=== PATIENT | female | born 1940 | race Caucasian/White ===

== ENCOUNTER 2017-01-08 14:09 | Emergency (ER) | payer MEDICARE ==
[~2017-01-08] VITALS: Ht 154.9 cm; Wt 62.0 kg
[~2017-01-08 14:09] MED LIST: CHLO25TA2 PO; ESTR42.5V PV; LEVO75TA3 PO; LISI-515 PO; OMEP20TA39 PO; TRAZ50TA4 PO; VENL-39 PO
[2017-01-08 14:15] VITALS: BP 159/96; PULSE 82; RESP 20; TEMP 97.9; O2SAT 95
[2017-01-08] MEDS ORDERED: TRAZ50TA12 PO (15:53)
[2017-01-08] MEDS ORDERED: VENL75TA PO (15:53)
[2017-01-08] MEDS ORDERED: LEVO75TA3 PO (15:53)
[2017-01-08 16:50] VITALS: BP 147/82; PULSE 72; RESP 18; O2SAT 97
--- NOTE | 2017-01-08 16:53 | PD ---
HPI Chief Complaint: Hypertension Time Seen by Provider: 16:37 Travel History International Travel<30 days: No Contact w/Intl Traveler<30days: No Traveled to known affect area: No History of Present Illness HPI This 76-year-old female says she has not been feeling well for several weeks. She's been having intermittent headache. When she checks her blood pressure tends to be elevated. She has a history of hypertension and is currently on lisinopril 20 mg a day and chlorthalidone. She is also on Effexor and trazodone. He was started on the trazodone for neuropathy. The headache she has is at the apex of the head. There is no numbness tingling or weakness. There is been no fever or chills. There is been no chest pain she has no history of heart disease or stroke. PFSH Past Medical History Arthritis: Yes Depression: Yes Cardiovascular Problems: Yes High Cholesterol: Yes GERD: Yes Hypertension: Yes Thyroid Disease: Yes Ulcer: Yes Influenza Vaccination: Yes ?: Not Menopausal: Yes Past Surgical History Cholecystectomy: Yes Endocrine Surgery: Yes (thyroidectomy) Joint Replacement: Yes (right shoulder) Thoracic Surgery: Yes (L 4-5) Social History Alcohol Use: Yes (1 glass daily) Tobacco Use: No Substance Use: No Allergies-Medications (Allergen,Severity, Reaction): Coded Allergies: No Known Allergies (Verified , 01/08/17) Reported Meds & Prescriptions Reported Meds & Active Scripts Active Chlorthalidone 25 Mg Tab 25 Mg PO DAILY Lisinopril 20 Mg Tab 20 Mg PO DAILY Reported Effexor (Venlafaxine HCl) 75 Mg Tab 75 Mg PO DAILY Trazodone (Trazodone HCl) 50 Mg Tab 50 Mg PO HS Levothyroxine (Levothyroxine Sodium) 75 Mcg Tab 75 Mcg PO DAILY Review of Systems General / Constitutional: No: Fever, Chills Eyes: No: Diploplia HENT: Positive: Headaches Cardiovascular: No: Chest Pain or Discomfort, Palpitations Respiratory: No: Cough, Shortness of Breath Gastrointestinal: No: Nausea, Vomiting Genitourinary: No: Nocturia Musculoskeletal: Positive: Myalgias Neurologic: No: Syncope Psychiatric: No: Anxiety Hematologic/Lymphatic: No: Easy Bruising Physical Exam Narrative GENERAL: Well-developed female SKIN: Warm and dry. HEAD: Atraumatic. Normocephalic. EYES: Pupils equal and round. No scleral icterus. No injection or drainage. ENT: No nasal bleeding or discharge. Mucous membranes pink and moist. NECK: Trachea midline. No JVD. CARDIOVASCULAR: Regular rate and rhythm. No murmur appreciated. RESPIRATORY: No accessory muscle use. Clear to auscultation. Breath sounds equal bilaterally. GASTROINTESTINAL: Abdomen soft, non-tender, nondistended. Hepatic and splenic margins not palpable. MUSCULOSKELETAL: No obvious deformities. No clubbing. No cyanosis. No edema. NEUROLOGICAL: Awake and alert. No obvious cranial nerve deficits. Motor grossly within normal limits. Normal speech. PSYCHIATRIC: Appropriate mood and affect; insight and judgment normal. Data Data Last Documented VS Vital Signs Date Time Temp Pulse Resp B/P Pulse Ox O2 Delivery O2 Flow Rate FiO2 01/08/17 16:50 72 18 147/82 97 Room Air 01/08/17 14:15 97.9 Orders Complete Blood Count With Diff (01/08/17 16:49) Basic Metabolic Panel (Bmp) (01/08/17 16:49) Potassium Chloride (Kcl) (01/08/17 18:00) Labs Laboratory Tests Test 01/08/17 17:10 White Blood Count 6.7 TH/MM3 Red Blood Count 5.40 MIL/MM3 Hemoglobin 15.2 GM/DL Hematocrit 46.1 % Mean Corpuscular Volume 85.4 FL Mean Corpuscular Hemoglobin 28.1 PG Mean Corpuscular Hemoglobin 32.9 % Concent Red Cell Distribution Width 12.6 % Platelet Count 332 TH/MM3 Mean Platelet Volume 7.2 FL Neutrophils (%) (Auto) 60.4 % Lymphocytes (%) (Auto) 29.1 % Monocytes (%) (Auto) 8.6 % Eosinophils (%) (Auto) 1.1 % Basophils (%) (Auto) 0.8 % Neutrophils # (Auto) 4.0 TH/MM3 Lymphocytes # (Auto) 1.9 TH/MM3 Monocytes # (Auto) 0.6 TH/MM3 Eosinophils # (Auto) 0.1 TH/MM3 Basophils # (Auto) 0.1 TH/MM3 CBC Comment DIFF FINAL Differential Comment Sodium Level 137 MEQ/L Potassium Level 3.0 MEQ/L Chloride Level 97 MEQ/L Carbon Dioxide Level 31.4 MEQ/L Anion Gap 9 MEQ/L Blood Urea Nitrogen 19 MG/DL Creatinine 1.00 MG/DL Estimat Glomerular Filtration 54 ML/MIN Rate Random Glucose 98 MG/DL Calcium Level 8.9 MG/DL MDM Medical Decision Making Medical Screen Exam Complete: Yes Emergency Medical Condition: Yes Medical Record Reviewed: Yes Differential Diagnosis Differential includes inadequate blood pressure medicine, essential hypertension , electrolyte imbalance Narrative Course Potassium is quite low at 3.0. This could explain why her blood pressure medicine has not working well. I will give her potassium now and start her on 20 mEq daily. He is to follow-up with her own medical doctor Diagnosis Primary Impression: Hypokalemia Scripts Potassium Chloride ER 20 Meq Tab20 Meq PO DAILY #30 TAB Ref 0 Prov:Aníbal Charles MD 01/08/17 Disposition: 01 DISCHARGE HOME Condition: Stable Aníbal Charles MD Jan 08, 2017 16:53
[2017-01-08 17:21] LABS: BASOPHIL # 0.1 TH/MM3 (0-0.2); BASOPHIL % 0.8 % (0.0-2.0); EOSINOPHIL # 0.1 TH/MM3 (0-0.4); EOSINOPHIL % 1.1 % (0.0-4.0); HEMATOCRIT 46.1 % (35.0-46.0); HEMO FLAGS DIFF FINAL; LYMPH % 29.1 % (9.0-44.0); LYMPHOCYTE # 1.9 TH/MM3 (1.0-4.8); MEAN CELL VOLUME 85.4 FL (80.0-100.0); MEAN CORPUSCULAR HEMOGLOBIN 28.1 PG (27.0-34.0); MEAN CORPUSCULAR HGB CONC 32.9 % (32.0-36.0); MONO % 8.6 % (0.0-8.0); NEUT % 60.4 % (16.0-70.0); PLATELET COUNT 332 TH/MM3 (150-450); RED CELL DISTRIBUTION WIDTH 12.6 % (11.6-17.2); WHITE BLOOD COUNT 6.7 TH/MM3 (4.0-11.0)
[2017-01-08 17:33] LABS: BICARBONATE 31.4 MEQ/L (21.0-32.0)
[2017-01-08] MEDS ORDERED: POTASSIUM CHLORIDE 20 MEQ CONTROLLED RELEASE TAB PO ONE (18:00)
[2017-01-08] MEDS ORDERED: POTA-163 PO (18:16)
[2017-01-08 18:24] VITALS: BP 128/84; PULSE 76; RESP 18; O2SAT 97
[2017-01-15] MEDS ORDERED: AMLO10TA2 PO (10:50)
[2017-02-12] MEDS ORDERED: TRAZ50TA12 PO (16:00)
[2017-02-12] MEDS ORDERED: POTA-163 PO (16:00)
[2017-02-12] MEDS ORDERED: NAPR500 PO (16:00)
[2017-02-12] MEDS ORDERED: OMEP40CA2 PO (16:00)
[2017-02-12] MEDS ORDERED: MELO7.5T4 PO (16:00)
[2017-02-12] MEDS ORDERED: VENL50TA PO (16:00)
[2017-02-12] MEDS ORDERED: TRIA37.5 PO (16:00)
[2017-02-12] MEDS ORDERED: AMLO5TAB2 PO (16:00)
[2017-02-12] MEDS ORDERED: DEXA4INJ9 IM (16:06)
[2017-02-12] MEDS ORDERED: TRIA.1%T TOPICAL (16:06)
[2017-02-12] MEDS ORDERED: PRED20 PO (16:06)
[2017-04-16] MEDS ORDERED: TRAM50TA PO (10:53)
[2017-04-29] MEDS ORDERED: TRAZ50TA12 PO (13:28)
[2017-05-08] MEDS ORDERED: LEVO75TA3 PO (10:00)
[2017-05-08] MEDS ORDERED: AMLO5TAB2 PO (10:01)
== END 2017-01-08 18:30 | disposition home or self-care (01) ==
LOC: PHED 14:09 → PHEFT 18:30
DX: E87.6 Hypokalemia (principal); F32.9 Major depressive disorder, single episode, unspecified; E78.00 Pure hypercholesterolemia, unspecified; I10 Essential (primary) hypertension
CPT/HCPCS: 80048; 85025; 99284

== ENCOUNTER 2017-02-08 17:38 | Emergency (ER) | payer MEDICARE ==
[~2017-02-08] VITALS: Ht 152.4 cm; Wt 62.8 kg
[~2017-02-08 17:38] MED LIST changes: +AMLO10TA2 PO; -CHLO25TA2 PO; -ESTR42.5V PV; -OMEP20TA39 PO; +POTA-163 PO; +TRAZ50TA12 PO; -TRAZ50TA4 PO; -VENL-39 PO; +VENL75TA PO
[2017-02-08 17:56] VITALS: BP 122/78; PULSE 82; RESP 15; TEMP 98.5; O2SAT 96
[2017-02-08] MEDS ORDERED: BENA25TA3 PO (19:53)
[2017-02-08] MEDS ORDERED: AMLO2.5T PO (19:53)
[2017-02-08] MEDS ORDERED: VENL50TA PO ×2 (19:53→19:59)
[2017-02-08] MEDS ORDERED: CHLO25TA2 PO (19:53)
[2017-02-08] MEDS ORDERED: POTA-163 PO (19:59)
--- NOTE | 2017-02-08 20:08 | PD ---
HPI Chief Complaint: Skin Problem Time Seen by Provider: 20:08 Travel History International Travel<30 days: No Contact w/Intl Traveler<30days: No Traveled to known affect area: No History of Present Illness HPI 76-year-old female presents to the ED for evaluation of a four-day history of rash. Patient states she first noticed it on her hands but that has since resolved. She states that she now has a rash in the bilateral axilla, under both breasts and in bilateral groin. She endorses mild pruritus. She also states that she occasionally feels as if she is having "tightness of the lungs and difficulties catching her breath. She states that the breathing difficulties resolve with dosing of Benadryl. Patient endorses initiation of 3 new medications in the past 2 weeks, amlodipine, potassium and chlorthalidone. She denies new soaps, toiletries, laundry detergents. PFSH Past Medical History Arthritis: Yes Depression: Yes Cardiovascular Problems: Yes High Cholesterol: Yes Diminished Hearing: No GERD: Yes Hypertension: Yes Immunizations Current: Yes (SHINGLES) Thyroid Disease: Yes Ulcer: Yes ?: Not Menopausal: Yes Past Surgical History Cholecystectomy: Yes Endocrine Surgery: Yes (thyroidectomy) Joint Replacement: Yes (right shoulder) Thoracic Surgery: Yes (L 4-5) Social History Alcohol Use: No Tobacco Use: No Substance Use: No Allergies-Medications (Allergen,Severity, Reaction): Coded Allergies: Lisinopril (Verified Allergy, Severe, HOARSE VOICE , 02/08/17) Reported Meds & Prescriptions Reported Meds & Active Scripts Active Reported Effexor (Venlafaxine HCl) 50 Mg Tab 50 Mg PO DAILY Potassium Chloride ER (Potassium Chloride) 20 Meq Tab 20 Meq PO DAILY Benadryl Allergy (Diphenhydramine HCl) 25 Mg Tab 25 Mg PO Q6H PRN Chlorthalidone 25 Mg Tab 25 Mg PO DAILY Amlodipine (Amlodipine Besylate) 2.5 Mg Tab 2.5 Mg PO DAILY Trazodone (Trazodone HCl) 50 Mg Tab 50 Mg PO HS Levothyroxine (Levothyroxine Sodium) 75 Mcg Tab 75 Mcg PO DAILY Review of Systems Except as stated in HPI: all other systems reviewed are Neg Physical Exam Narrative GENERAL: Well-nourished, well-developed white female appearing younger than her stated age. SKIN: Warm and dry. There is a mildly erythematous, blanching, lacy rash of bilateral axilla, bilateral groins and under bilateral breasts. No rash noted on the palms bilaterally. HEAD: Normocephalic. EYES: No scleral icterus. No injection or drainage. ENT: Pearly tenorio tympanic memories bilaterally. Oropharynx without erythema, edema or exudate. Uvula midline. Airway patent. Floor of mouth is soft. NECK: Supple, trachea midline. No JVD or lymphadenopathy. CARDIOVASCULAR: Regular rate and rhythm without murmurs, gallops, or rubs. RESPIRATORY: Breath sounds clear and equal bilaterally. No accessory muscle use. GASTROINTESTINAL: Abdomen soft, non-tender, nondistended. MUSCULOSKELETAL: No cyanosis, or edema. BACK: Nontender without obvious deformity. No CVA tenderness. Data Data Last Documented VS Vital Signs Date Time Temp Pulse Resp B/P Pulse Ox O2 Delivery O2 Flow Rate FiO2 02/08/17 17:56 98.5 82 15 122/78 96 MDM Medical Decision Making Medical Screen Exam Complete: Yes Emergency Medical Condition: Yes Differential Diagnosis Contact dermatitis versus heat rash versus intertriginous candidiasis versus drug eruption versus other Narrative Course 76-year-old female presents to the ED for evaluation of a four-day history of rash. Patient states she first noticed it on her hands but that has since resolved. She states that she now has a rash in the bilateral axilla, under both breasts and in bilateral groin. She endorses mild pruritus. She also states that she occasionally feels as if she is having "tightness of the lungs and difficulties catching her breath. She states that the breathing difficulties resolve with dosing of Benadryl. Patient endorses initiation of 3 new medications in the past 2 weeks, amlodipine, potassium and chlorthalidone. She denies new soaps, toiletries, laundry detergents. Vitals reviewed. Physical exam reveals a mildly erythematous, blanching, lacy rash of bilateral axilla, bilateral groins and under bilateral breasts. No rash noted on the palms bilaterally. ENT exam is unremarkable, chest is clear to auscultation bilaterally. This does not look like contact dermatitis or candidiasis. Could be a drug eruption but if so it's atypical. As a caution the patient was instructed to discontinue potassium and chlorthalidone. She is instructed to continue with [id number] administration of Benadryl, follow-up with her primary care provider tomorrow. We discussed reasons to return to the ED. She indicated understanding of the instructions. She is amenable to the plan of care. This patient is stable and discharged home. Diagnosis Primary Impression: Pruritic intertrigo Additional Impression: Rash and nonspecific skin eruption Referrals: Primary Care Physician Patient Instructions: General Instructions Additional Instructions: Stop taking potassium and chlorthalidone. Continue taking amlodipine. Continue taking Benadryl every 4-6 hours for the next 24 hours. Return to the emergency room immediately for worsening of breathing symptoms. Follow-up with your primary care provider tomorrow for reevaluation. Return to the ED for any urgent or emergent medical condition. Disposition: 01 DISCHARGE HOME Condition: Stable Ny Valladares Feb 08, 2017 20:08
[2017-02-12] MEDS ORDERED: OMEP40CA2 PO (16:00)
[2017-02-12] MEDS ORDERED: MELO7.5T4 PO (16:00)
[2017-02-12] MEDS ORDERED: TRIA37.5 PO (16:00)
[2017-02-12] MEDS ORDERED: NAPR500 PO (16:00)
[2017-02-12] MEDS ORDERED: AMLO5TAB2 PO (16:00)
[2017-02-12] MEDS ORDERED: TRAZ50TA12 PO (16:00)
[2017-02-12] MEDS ORDERED: POTA-163 PO (16:00)
[2017-02-12] MEDS ORDERED: VENL50TA PO (16:00)
[2017-02-12] MEDS ORDERED: DEXA4INJ9 IM (16:06)
[2017-02-12] MEDS ORDERED: TRIA.1%T TOPICAL (16:06)
[2017-02-12] MEDS ORDERED: PRED20 PO (16:06)
[2017-04-16] MEDS ORDERED: TRAM50TA PO (10:53)
[2017-04-29] MEDS ORDERED: TRAZ50TA12 PO (13:28)
[2017-05-08] MEDS ORDERED: LEVO75TA3 PO (10:00)
[2017-05-08] MEDS ORDERED: AMLO5TAB2 PO (10:01)
== END 2017-02-08 21:14 | disposition home or self-care (01) ==
LOC: PHED 17:38 → PHEFT 21:14
DX: L29.8 Other pruritus (principal); L30.4 Erythema intertrigo; I10 Essential (primary) hypertension; F32.9 Major depressive disorder, single episode, unspecified; E78.00 Pure hypercholesterolemia, unspecified
CPT/HCPCS: 99283

== ENCOUNTER 2017-07-03 15:13 | Emergency (ER) | payer MEDICARE ==
[~2017-07-03] VITALS: Ht 152.4 cm; Wt 63.8 kg
[~2017-07-03 15:13] MED LIST changes: -AMLO10TA2 PO; +AMLO5TAB2 PO; -LISI-515 PO; +MELO7.5T4 PO; +OMEP40CA2 PO; -POTA-163 PO; +PRED20 PO; +TRAM50TA PO; +TRIA.1%T TOPICAL; +TRIA37.5 PO; +VENL50TA PO; -VENL75TA PO
[2017-07-03 15:23] VITALS: BP 137/58; PULSE 89; RESP 18; TEMP 98; O2SAT 96
[2017-07-03] MEDS ORDERED: SILVER NITR/POTASSIUM NITRATE APPLICATORS TOPICAL ONE (16:00)
--- NOTE | 2017-07-03 16:48 | PD ---
HPI Chief Complaint: Nosebleed Time Seen by Provider: 15:33 Travel History International Travel<30 days: No Contact w/Intl Traveler<30days: No Traveled to known affect area: No History of Present Illness HPI Cyst 77-year-old woman who presents to the emergency department complaining of nosebleed. She been having nosebleeds almost daily for the past month or so. Previously She's not had any trouble with nosebleeds. She is not having any bleeding from her gums, easy bruising, or other evidence of bleeding diathesis. She is not really had sinus or nasal problems in the past. History Past Medical History Narrative Medical Hypertension Hypothyroidism Arthritis Influenza Vaccination: Yes Menopausal: Yes Social History Alcohol Use: No Tobacco Use: No Allergies-Medications (Allergen,Severity, Reaction): Coded Allergies: Lisinopril (Verified Allergy, Severe, HOARSE VOICE , 07/03/17) Reported Meds & Prescriptions Reported Meds & Active Scripts Active Omeprazole 40 Mg Cap 40 Mg PO DAILY Effexor (Venlafaxine HCl) 50 Mg Tab 50 Mg PO DAILY Amlodipine (Amlodipine Besylate) 5 Mg Tab 5 Mg PO DAILY Levothyroxine (Levothyroxine Sodium) 75 Mcg Tab 75 Mcg PO DAILY Trazodone (Trazodone HCl) 50 Mg Tab 50 Mg PO HS Tramadol (Tramadol HCl) 50 Mg Tab 50 Mg PO Q8H PRN Prednisone 20 Mg Tab 40 Mg PO DAILY Take 40 mg (2 tablets) daily for 5 days Triamcinolone Topical (Triamcinolone Acetonide) 0.1% Cream 1 Applic TOPICAL ONCE Meloxicam 7.5 Mg Tab 7.5 Mg PO DAILY Triamterene-Hydrochlorothiazide 37.5-25 Mg Tab 1 Tab PO DAILY Review of Systems Except as stated in HPI: all other systems reviewed are Neg Physical Exam Narrative GENERAL: Well-appearing 77-year-old woman, no acute distress. No active bleeding. SKIN: Focused skin assessment warm/dry. HEAD: Atraumatic. Normocephalic. EYES: Pupils equal and round. No scleral icterus. No injection or drainage. ENT: No nasal bleeding or discharge. Mucous membranes pink and moist. Bleeding had mostly been, the right side. Inside the right near the septum is a small area of scabbing. This appears to be the source of bleeding. No active bleeding now. NECK: Trachea midline. No JVD. CARDIOVASCULAR: Warm and well perfused. RESPIRATORY: Normal rate and effort. GASTROINTESTINAL: Abdomen soft, non-tender, nondistended. Hepatic and splenic margins not palpable. MUSCULOSKELETAL: No obvious deformities. Data Data Last Documented VS Vital Signs Date Time Temp Pulse Resp B/P Pulse Ox O2 Delivery O2 Flow Rate FiO2 07/03/17 15:23 98.0 89 18 137/58 96 Orders Silver Nitrate Applicators (Silver Nitra (07/03/17 16:00) MDM Medical Decision Making Medical Screen Exam Complete: Yes Emergency Medical Condition: Yes Differential Diagnosis Epistaxis, posterior epistaxis, mass, polyp, other Narrative Course Medical decision-making new para 77-year-old woman with recurrent bleeding. Area likely source was identified in the right near on the septum. There is no active bleeding. Given her recurrent bleeding, I did cauterize the area. Diagnosis Primary Impression: Epistaxis not due to trauma Referrals: Isaac Grier MD call for appointment Additional Instructions: If you're nosebleed begins to bleed again, blow your nose to expel any clots. Pinch your nose together at the end. Hold it for a full 15 minutes. After 15 minutes, release of this is still bleeding hold it again for another full 15 minutes. Do this for a total of an hour. If it is still bleeding after that, return to the emergency department. Follow-up with ENT physician for further evaluation. Disposition: 01 DISCHARGE HOME Condition: Stable Isidoro Bernal MD Jul 03, 2017 16:48
[2017-07-03 17:13] VITALS: BP 128/70
== END 2017-07-03 17:14 | disposition home or self-care (01) ==
LOC: PHED 15:13
DX: R04.0 Epistaxis (principal); I10 Essential (primary) hypertension; E03.9 Hypothyroidism, unspecified; Z87.39 Personal history of other diseases of the musculoskeletal system and connective tissue
CPT/HCPCS: 99282